=== PATIENT | male | born 1945 | race Caucasian/White ===

== ENCOUNTER 2017-03-28 06:04 | Inpatient (IN) ==
[2017-03-28 06:39] LABS: MANUAL DIFF NEEDED? NO
[2017-03-28 06:43] LABS: BASO% 0.3 % (0.0-0.8); EOS# 0.45 X1000 (0.0-0.7); EOS% 6.8 % (0.0-10.0); HEMATOCRIT 37.7 % (42.0-52.0); HEMOGLOBIN 12.1 g/dL (14.0-18.0); IMM GRAN# 0.02 X1000 (0.0-0.04); IMM GRAN% 0.3 % (0.0-0.5); LYMPH# 3.25 X1000 (1.2-3.4); LYMPH% 49.5 % (20.5-51.1); MCH 27.7 PG (27-31); MCHC 32.1 g/dL (33-37); MCV 86.3 FL (81-99); MONO# 0.45 X1000 (0.11-0.59); MONO% 6.8 % (1.7-9.3); MPV 10.1 FL (7.4-10.4); NEUT% 36.3 % (42.2-75.2); PLT 205 X1000 (130-400); RBC 4.37 XMIL (4.7-6.1)
[2017-03-28 07:00] LABS: ALBUMIN 4.3 g/dL (3.5-5.0); CALCIUM 9.2 mg/dL (8.8-10.2); MAGNESIUM 2.2 mg/dL (1.5-2.7); POTASSIUM 3.7 mmol/L (3.5-5.1); TOTAL BILIRUBIN 0.22 mg/dL (0.20-1.00); TOTAL PROTEIN 6.8 g/dL (6.3-8.3)
[2017-03-28 08:29] LABS: INR 1.05; PROTIME 11.1 Seconds (9.2-11.7); PTT 25.8 Seconds (22.0-36.0)
[2017-03-28 09:17] LABS: BILIRUBIN URINE NEGATIVE (NEGATIVE); BLOOD URINE NEGATIVE (NEGATIVE); COLOR YELLOW; GLUCOSE URINE NEGATIVE (NEGATIVE); LEUKOCYTES URINE NEGATIVE (NEGATIVE); NITRITE URINE NEGATIVE (NEGATIVE); PH URINE 5.5; PROTEIN URINE NEGATIVE (NEGATIVE); SP GRAVITY URINE 1.022; TURBIDITY URINE CLEAR (CLEAR); UR EPITHELIAL CELLS <10 /HPF (<10); URINE BACTERIA NEGATIVE /HPF; URINE CULTURE NEEDED? NO; URINE MICRO REVIEW NEEDED? NO; URINE RBC <10 /HPF (<10); URINE SOURCE CLEAN CATCH; URINE WBC <10 /HPF (<10); UROBILINOGEN URINE NORMAL (NORMAL)
[2017-03-28] MEDS ORDERED: NITROGLYCERIN TOP ONE (09:48)
[2017-03-28 11:46] LABS: HEMOGLOBIN A1C 6.2 % (4.8-6.0)
[2017-03-28] MEDS ORDERED: ZOFRAN IV PRN (12:57)
[2017-03-28] MEDS ORDERED: TYLENOL PO PRN (12:57)
[2017-03-28] MEDS ORDERED: NS 1,000 ML IV SCH (12:57)
[2017-03-28] MEDS: NITROGLYCERIN TOP SCH ×2 (15:46→20:26)
[2017-03-28] MEDS: HUMULIN R SUBQ SCH ×2 (16:32→20:25)
[2017-03-28] MEDS: LOTREL 5/20 MG PO SCH (17:11)
[2017-03-28] MEDS: EXELON 9.5MG/24HRS TD SCH (17:11)
[2017-03-28] MEDS ORDERED: NS 500 ML IV SCH (18:32)
[2017-03-28] MEDS: LOPRESSOR PO SCH (20:24)
[2017-03-28] MEDS: PRILOSEC PO SCH (20:25)
[2017-03-28] MEDS ORDERED: LIPITOR PO SCH (21:00)
[2017-03-28] MEDS ORDERED: FLOMAX PO SCH (21:00)
[2017-03-28] MEDS ORDERED: LOPRESSOR PO SCH (21:00)
[2017-03-28] MEDS ORDERED: PRAVACHOL PO SCH ×2 (21:00)
[2017-03-28] MEDS: XANAX PO SCH (23:53)
[2017-03-29] MEDS: NITROGLYCERIN TOP SCH ×2 (01:46→08:34)
[2017-03-29 05:16] LABS: MANUAL DIFF NEEDED? NO
[2017-03-29 05:35] LABS: BASO% 0.4 % (0.0-0.8); EOS# 0.39 X1000 (0.0-0.7); EOS% 5.7 % (0.0-10.0); HEMATOCRIT 37.8 % (42.0-52.0); HEMOGLOBIN 12.1 g/dL (14.0-18.0); IMM GRAN# 0.04 X1000 (0.0-0.04); IMM GRAN% 0.6 % (0.0-0.5); LYMPH# 2.97 X1000 (1.2-3.4); LYMPH% 43.4 % (20.5-51.1); MCH 27.7 PG (27-31); MCV 86.5 FL (81-99); MONO# 0.39 X1000 (0.11-0.59); MONO% 5.7 % (1.7-9.3); MPV 9.9 FL (7.4-10.4); NEUT% 44.2 % (42.2-75.2); PLT 189 X1000 (130-400); RBC 4.37 XMIL (4.7-6.1)
[2017-03-29 05:51] LABS: INR 1.07; PROTIME 11.3 Seconds (9.2-11.7); PTT 24.3 Seconds (22.0-36.0)
[2017-03-29 06:14] LABS: ALBUMIN 3.9 g/dL (3.5-5.0); CALCIUM 8.7 mg/dL (8.8-10.2); POTASSIUM 3.5 mmol/L (3.5-5.1); TOTAL BILIRUBIN 0.35 mg/dL (0.20-1.00); TOTAL PROTEIN 6.6 g/dL (6.3-8.3)
[2017-03-29] MEDS: HUMULIN R SUBQ SCH ×2 (06:36→11:42)
[2017-03-29] MEDS: EXELON 9.5MG/24HRS TD SCH (08:34)
[2017-03-29] MEDS: PRILOSEC PO SCH (08:36)
[2017-03-29] MEDS: XANAX PO SCH (08:37)
[2017-03-29] MEDS: LOTREL 5/20 MG PO SCH (08:37)
[2017-03-29] MEDS: LOPRESSOR PO SCH (08:40)
[2017-03-29] MEDS ORDERED: ASPIRIN PO SCH (09:00)
[2017-03-29] MEDS ORDERED: SYNTHROID PO SCH (09:00)
[2017-03-29] MEDS ORDERED: PROZAC PO SCH (09:00)
[2017-03-29] MEDS ORDERED: IMDUR PO SCH ×2 (09:00→12:23)
[2017-03-29] MEDS ORDERED: NAMENDA PO SCH (09:00)
[2017-03-29 12:25] VITALS: BP 125/68
[2017-03-30] MEDS ORDERED: IMDUR PO SCH (09:00)
== END 2017-03-29 14:30 | disposition home or self-care (01) ==
LOC: SUPCPDRO → ED 06:04 → 3S 12:23
PROVIDERS: ATTEND Internal Medicine